=== PATIENT | male | born 1950 | race Caucasian/White ===

== ENCOUNTER 2017-04-12 15:17 | Observation (INO) | payer OTHER, BC ==
[~2017-04-12] VITALS: Ht 172.7 cm; Wt 105.0 kg
[~2017-04-12 15:17] MED LIST: ADULT LOW DOSE81 M1 PO; ALTACE10 MG PO; ALTACE5 MG PO; ASPIR 8181 M1 PO; ASPIR-LOW81 MG PO; CO Q-10100 MG PO; CRESTOR40 MG PO; EPIPEN ADU0.3 MG/0.3 IM; FISH OIL 1,0001 EAC7 PO; GLUCOSAMINE &1 EAC1 PO; METOPROLOL SUC100 MG PO; NIASPAN,SLO-N1000 MG PO; ONE-A-DAY ESSE1 EAC1 PO; TOPROL XL50 MG PO; TRIAMTERENE-HC1 EAC1 PO; VITAMIN B12-FO1 EACH PO; VITAMIN D-32000 UNI1 PO; VITAMIN D-32000 UNIT PO; ZETIA10 MG PO; ZYRTEC10 M3 PO
[2017-04-12 16:13] LABS: CHLORIDE 105 mEq/L (99-109); POTASSIUM 3.8 mEq/L (3.7-5.4); SODIUM 137 mEq/L (136-147)
[2017-04-12 16:14] LABS: GLUCOSE 105 mg/dL (70-99)
[2017-04-12 16:16] LABS: ANION GAP 6 MEQ/L (2-14)
[2017-04-12 16:18] LABS: GFR ESTIMATE (CALCULATED) > 59 mL/min/
[2017-04-12 16:19] LABS: UREA NITROGEN (BUN) 15 mg/dL (9-23)
[2017-04-12 16:23] LABS: HEMATOCRIT 46.5 % (38.0-50.0); MCH 28.3 PG (29.0-34.0); MCHC 32.5 G/DL (30.0-36.0); MCV 87.1 FL (86-99); MEAN PLAT.VOLUME 11.1 uM^3 (9.0-12.4); PLATELET COUNT 191 K/uL (156-360); RBC DIS.WIDTH-CV 14.7 % (11.8-14.6); RBC DIS.WIDTH-SD 46.9 % (39-53); RED BLOOD COUNT 5.34 M/uL (4.00-5.50); WHITE BLOOD COUNT 10.9 K/uL (4.1-10.2)
[2017-04-12 16:24] LABS: TROP-I INTERPRETATION NEGATIVE; TROPONIN-I < 0.01 ng/mL (0.0-0.30)
[2017-04-12] MEDS ORDERED: ROSUVASTATIN CA40 MG PO (17:03)
[2017-04-12] MEDS ORDERED: RAMIPRIL10 MG PO (17:04)
[2017-04-12] MEDS ORDERED: VITAMIN B-122000 MC1 PO (17:10)
[2017-04-12] MEDS ORDERED: VITAMIN D2000 UNIT PO (17:11)
[2017-04-12] MEDS ORDERED: MELATONIN10 M1 PO (17:15)
[2017-04-12] MEDS ORDERED: MUCINEX FAST-M1 EAC4 PO (17:20)
[2017-04-12] MEDS ORDERED: MAGNESIUM250 MG PO (17:21)
[2017-04-12] MEDS ORDERED: VALTREX50 MG/ML PO (17:25)
[2017-04-12 18:41] LABS: EOSINOPHIL COUNT 0.2 K/uL (0-0.3); IMMATURE GRANULOCYTE (%) 0.4 % (0.0-0.7); INSTRUMENT ABS NEUTROPHIL CT 8.1 K/uL; LYMPHOCYTE COUNT 1.7 K/uL (1.0-2.8); MONOCYTE (%) 5.7 % (3-12); MONOCYTE COUNT 0.6 K/uL (0-0.8); NEUTROPHIL COUNT 8.1 K/uL (1.8-6.4)
[2017-04-12] MEDS ORDERED: MECLIZINE HCL25 MG PO (19:15)
[2017-04-12 19:46] LABS: TROP-I INTERPRETATION NEGATIVE; TROPONIN-I < 0.01 ng/mL (0.0-0.30)
[2017-04-12 22:42] LABS: ADD MIUA? YES; BILIRUBIN NEGATIVE; BLOOD SMALL; COLOR STRAW ((YELLOW)); GLUCOSE (STRIP) NEGATIVE; KETONES NEGATIVE; LEUKOCYTES NEGATIVE; NITRITE NEGATIVE; PROTEIN (STRIP) NEGATIVE; SPECIFIC GRAVITY 1.006 (1.000-1.030); UROBILINOGEN 0.2 MG/DL (0.2-1.0)
[2017-04-12 22:52] LABS: BACTERIA NONE SEEN /HPF; EPITHELIAL CELLS NONE SEEN /HPF; MUCUS NONE SEEN /LPF; WHITE BLOOD CELLS 0-5 /HPF (0-5)
[2017-04-13 01:31] VITALS: BP 130/69
[2017-04-13 02:10] LABS: TROP-I INTERPRETATION NEGATIVE; TROPONIN-I < 0.01 ng/mL (0.0-0.30)
[2017-04-13 04:27] VITALS: BP 132/79
[2017-04-13 04:28] VITALS: BP 134/85; BP 154/94
[2017-04-13 05:55] LABS: EOSINOPHIL (%) 1.1 % (0-5); EOSINOPHIL COUNT 0.1 K/uL (0-0.3); HEMATOCRIT 44.9 % (38.0-50.0); IMMATURE GRANULOCYTE (%) 0.3 % (0.0-0.7); LYMPHOCYTE COUNT 2.6 K/uL (1.0-2.8); MCH 28.9 PG (29.0-34.0); MCHC 33.6 G/DL (30.0-36.0); MCV 85.9 FL (86-99); MEAN PLAT.VOLUME 11.2 uM^3 (9.0-12.4); MONOCYTE (%) 6.9 % (3-12); MONOCYTE COUNT 0.7 K/uL (0-0.8); NEUTROPHIL (%) 66.9 % (45-76); PLATELET COUNT 197 K/uL (156-360); RBC DIS.WIDTH-CV 14.7 % (11.8-14.6); RBC DIS.WIDTH-SD 46.4 % (39-53); RED BLOOD COUNT 5.23 M/uL (4.00-5.50); WHITE BLOOD COUNT 10.5 K/uL (4.1-10.2)
[2017-04-13 06:25] LABS: ALKALINE PHOSPHATASE 55 IU/L (3-129); ANION GAP 9 MEQ/L (2-14); CHLORIDE 103 MEQ/L (99-109); GFR ESTIMATE (CALCULATED) > 59 mL/min/; GLUCOSE 100 mg/dL (70-99); POTASSIUM 3.7 MEQ/L (3.7-5.4); SAMPLE HEMOLYSIS CHECK 0; SAMPLE ICTERIC CHECK 0; SAMPLE LIPEMIA CHECK 0; SODIUM 139 MEQ/L (136-147); TOTAL BILIRUBIN 1.2 MG/DL (0.0-1.0); UREA NITROGEN (BUN) 14 mg/dL (9-23)
[2017-04-13 08:00] VITALS: BP 130/70; BP 144/86; BP 156/83
[2017-04-13 12:15] VITALS: BP 132/69
== END 2017-04-13 15:08 | disposition home or self-care (01) ==
LOC: EME 15:17 → 5WEST 19:09 → EDOF 19:09 → CANRESERV 19:11 → ENRESERV 19:11 → 5WEST 04-13 01:14
PROVIDERS: Emergency Medicine; Internal Medicine
DX: R07.89 Other chest pain (principal); R42 Dizziness and giddiness; R35.8 Other polyuria; R93.8 Abnormal findings on diagnostic imaging of other specified body structures; I25.10 Atherosclerotic heart disease of native coronary artery without angina pectoris; I10 Essential (primary) hypertension; E78.00 Pure hypercholesterolemia, unspecified; E66.9 Obesity, unspecified; I48.0 Paroxysmal atrial fibrillation; Z79.82 Long term (current) use of aspirin; M48.10 Ankylosing hyperostosis [Forestier], site unspecified; E78.5 Hyperlipidemia, unspecified; Z82.49 Family history of ischemic heart disease and other diseases of the circulatory system; Z83.3 Family history of diabetes mellitus; Z88.0 Allergy status to penicillin; Z91.030 Bee allergy status
CPT/HCPCS: 70450; 70544; 70551; 71020; 74176; 80048; 80053; 81003; 83930; 83935; 84484; 84588 90; 85025; 85025 91; 85027; 93005; 93880; 99281; 99285; G0378; G8978 GP CH; G8979 GP CH; G8980 GP CH; G8987 GO CH; G8988 GO CH; G8989 GO CH; J1644